=== PATIENT | male | born 1995 | race Two or more races ===

== ENCOUNTER 2018-04-06 16:51 | Emergency (ER) | payer OTHER ==
[~2018-04-06] VITALS: Ht 170.2 cm; Wt 108.9 kg
[2018-04-06] MEDS ORDERED: AMLO2.5T4 PO (17:05)
--- NOTE | 2018-04-06 17:06 | NUR ---
PT IS IN ROOM #2B. DR MINAYA EVALUATED THE PT.
[2018-04-06 17:24] LABS: BASOPHILS # (AUTO) 0.1 K/uL (0.0-8.0); BASOPHILS % (AUTO) 0.9 % (0.0-2.0); EOSINOPHILS # (AUTO) 0.2 K/uL (0.0-0.7); EOSINOPHILS % (AUTO) 2.1 % (0.0-7.0); HEMATOCRIT 41.4 % (36.7-47.1); HEMOGLOBIN 14.9 g/dL (12.5-16.3); LYMPHOCYTES # (AUTO) 2.9 K/uL (20.0-40.0); LYMPHOCYTES % (AUTO) 28.8 % (20.5-51.5); MEAN CORPUSCULAR HEMOGLOBIN 29.8 uug (23.8-33.4); MEAN CORPUSCULAR HGB CONC 36 g/dL (32.5-36.3); MEAN CORPUSCULAR VOLUME 82.9 fL (73.0-96.2); MONOCYTES # (AUTO) 0.6 K/uL (2.0-10.0); MONOCYTES % (AUTO) 5.4 % (0.0-11.0); NEUTROPHILS # (AUTO) 6.4 K/uL (1.8-8.9); NEUTROPHILS % (AUTO) 62.8 % (38.5-71.5); PLATELET COUNT (AUTO) 240 K/uL (152-348); WHITE BLOOD COUNT (AUTO) 10.1 K/uL (3.6-10.2)
[2018-04-06 17:31] LABS: CREATININE 1.1 mg/dL (0.6-1.3); POTASSIUM 3.9 mmol/L (3.5-5.1)
[2018-04-06 17:38] LABS: BILIRUBIN,TOTAL 0.6 mg/dL (0.2-1.0); TOTAL PROTEIN, SERUM 8.3 g/dL (6.4-8.2)
--- NOTE | 2018-04-06 19:01 | NUR ---
REPORT GIVEN TO LORENA JEAN BAPTISTE TECHNICAL SUPPORT DIRECTOR.
--- NOTE | 2018-04-06 19:30 | NUR ---
Received report from Gerardo, assumed care of pt., pt. is resting in bed w/ female nitroglycerin neutralizer, NAD, will continue to monitor,
--- NOTE | 2018-04-06 20:52 | NUR ---
Pt. resting in bed, NAD, no concerns at this time, will continue to monitor,
--- NOTE | 2018-04-06 21:49 | NUR ---
Patient discharged to home in stable conditon. Written and verbal after care instructions given. Patient verbalizes understanding of instructions. Pt. d/c per MD orders w/ prescription, all d/c papers signed, all belongings w/ pt., left w/ female hydraulic controls technician in private vehicle, ID band removed, NAD, ambulated off unit w/ steady gait,
== END 2018-04-06 21:55 | disposition home or self-care (01) ==
LOC: ER 16:51
DX: R07.9 Chest pain, unspecified (principal); R94.5 Abnormal results of liver function studies; I10 Essential (primary) hypertension; Z79.899 Other long term (current) drug therapy
CPT/HCPCS: 36415; 70030-TC; 71045; 85025; 93005; A4663